=== PATIENT | male | born 1975 | race Caucasian/White ===

== ENCOUNTER → 2019-09-28 09:58 | Outpatient (BNVA) | payer SELFPAY | PROVIDERS: Family Provider Internal Medicine; Visit Provider Psychiatry & Neurology Neurology | DX: G40.909 Epilepsy, unspecified, not intractable, without status epilepticus (principal); F17.210 Nicotine dependence, cigarettes, uncomplicated | CPT/HCPCS: 99213 ==

== ENCOUNTER → 2019-11-10 15:25 | Outpatient (BNVA) | payer SELFPAY | PROVIDERS: Family Provider Internal Medicine; Visit Provider Nurse Practitioner | DX: R11.2 Nausea with vomiting, unspecified (principal) | CPT/HCPCS: 87804 ==

== ENCOUNTER → 2021-10-04 18:07 | Outpatient (BNVA) | payer SELFPAY | PROVIDERS: Family Provider Internal Medicine; Visit Provider Nurse Practitioner | DX: Z20.822 Contact with and (suspected) exposure to COVID-19 (principal) | CPT/HCPCS: 87635 ==

== ENCOUNTER 2023-01-11 21:32 | Emergency (ER) | payer SELFPAY ==
[2023-01-11 21:36] VITALS: BP 160/109; PULSE 88; RESP 16; TEMP 36.6; O2SAT 99; BMI 23.1
[2023-01-11 21:41] VITALS: BP 160/109; PULSE 88; RESP 16; TEMP 36.6; O2SAT 99
[2023-01-11] MEDS: amoxicillin-clav 875-125 mg Tablet 1 TAB PO (23:08)
[2023-01-11] MEDS: ketorolac 60 mg/2 mL INJ IM (23:08)
[2023-01-11 23:15] VITALS: PULSE 81; RESP 18; O2SAT 99
--- NOTE | 2023-01-12 04:53 | ED_ITS ---
HPI - Dental/Oral General: Chief complaint: Dental/Oral Stated complaint: tooth pain Time Seen by Provider: 01/11/23 22:36 Source: patient Mode of arrival: ambulatory Limitations: no limitations History of Present Illness: Patient presents emergency department today for evaluation treatment of right lower jaw pain and swelling secondary to dental infection over the last several days. Patient denies any fever. He has had no difficulty swallowing or sensation of difficulty breathing. Review of Systems General: Reports: 10 or more systems reviewed and unremarkable except in HPI and below PFSH ED PFSH: Medical History Generalized idiopathic epilepsy and epileptic syndromes, not intractable, without status epilepticus Family History Other CAD (coronary artery disease) Social History Smoking and tobacco status: current every day smoker cigarettes Packs smoked per day: 1 Alcohol intake: current Substance/Drug Use: current Physical Exam Const: COMMON NORMALS: no acute distress, patient oriented x3 and alert HENMT: OTHER: Patient does have some mild swelling noted to the right mid lower jawline. It is tender to palpation but, swelling does not extend down to the right side of the neck. Patient has some chronically poor dentition noted but no significant signs of swelling on the gumline, swelling on the floor of the mouth or difficulty with airway patency. Eye: COMMON NORMALS: Equal, round and reactive pupils present, EOMs intact bilaterally and conjunctivae normal CONJUNCTIVA: Yes conjunctivae normal PUPIL: Yes Equal, round and reactive pupils present Neck/C-Spine: COMMON NORMALS: no JVD Lymph: LYMPHATIC: no lymphadenopathy noted Resp: COMMON NORMALS: normal respiratory effort, No retractions and No use of accessory muscles Cardio: COMMON NORMALS: no JVD and regular rate RATE: regular rate : COMMON NORMALS: Yes no CVA tenderness BLADDER/KIDNEY EXAM: Yes no CVA tenderness Back/Pelvis: COMMON NORMALS: no CVA tenderness, thoracic and lumbar spine normal to inspection and thoraco-lumbar ROM normal Extremity: COMMON NORMALS: normal to inspection, full ROM and no pedal edema Neuro: COMMON NORMALS: patient oriented x3 SENSORIUM/ORIENTATION: Yes alert Skin: COMMON NORMALS: no rashes or lesions noted and turgor normal GENERAL SKIN EXAM: no rashes or lesions noted and turgor normal Course Vital Signs: Vital signs: Vital Signs Temperature 97.9 F 01/11/23 21:41 Pulse Rate 81 01/11/23 23:15 Respiratory Rate 18 01/11/23 23:15 Blood Pressure 160/109 01/11/23 21:41 Pulse Oximetry 99 01/11/23 23:15 Oxygen Delivery Me thod Room Air 01/11/23 21:41 MDM - Dental/Oral Medical Decision Making Patient is started on oral antibiotics here in the emergency department with the rest being given as a prescription to continue in the morning. Patient is driving himself so, only Toradol was provided to him here in the ER. A short course of pain medication was provided to him to fill at the pharmacy. He was given strict return precautions to be seen and reevaluated if swelling develops on the right side of his neck or he has any difficulty swallowing. A handout of reduced cost dental care here in the area was provided to him for reference for follow-up for more definitive dental care. Differential Diagnosis Likely gingival abscess, toothache and dental abscess Discharge Plan Discharge Patient Disposition: Home Clinical Impression: Dental abscess Condition: Stable Prescriptions: New amoxicillin-pot clavulanate 875-125 mg tablet 1 tab PO BID Qty: 20 0RF ketorolac 10 mg tablet 10 mg PO Q8H 5 Days Qty: 15 0RF Discharge Orders: Discharge ED (Routine); Ordered 01/11/23 Ordered By: Christelle Walker Referrals: Flavio Arndt MD [Family Provider] - Discharge Diet: Usual diet Discharge Activity: Increase activity as tolerated Patient Instructions: Dental Abscess (ED) Activity Restrictions/Additional Instructions: We have started antibiotics and medication to help you with pain tonight. However, you do have noticeable swelling of your right jaw and I have some concerns if there is continued swelling down the right side of your neck. If you have any difficulty breathing or swallowing need to return to the emergency room immediately. I also have some resources in your discharge packet to look over should you need follow-up dental care. Coding Level of Care Code ED [employer] for Miguel Jasso
--- NOTE | 2023-01-23 10:30 | DCPLANNER ---
TCM called patient due to no primary care physician - no answer at this time.
== END 2023-01-11 23:16 | disposition home or self-care (01) ==
PROVIDERS: Emergency Provider Physician Assistant; Family Provider Internal Medicine
DX: K04.7 Periapical abscess without sinus (principal); F17.210 Nicotine dependence, cigarettes, uncomplicated
CPT/HCPCS: 96372; 99284; J1885

== ENCOUNTER 2023-09-13 02:30 | Emergency (ER) | payer SELFPAY ==
[2023-09-13 02:31] VITALS: BP 136/87; PULSE 81; RESP 20; TEMP 36.3; O2SAT 96; BMI 26.4
--- NOTE | 2023-09-13 02:58 | ED_ITS ---
HPI - Altered Mental Status General: Chief Complaint: Altered Mental Status Stated Complaint: LOC Time Seen by Provider: 09/13/23 02:58 History of Present Illness: 47-year-old male who was evidently [place]ke d [place] by EMS [place] [address] He was found in a car. Supposedly he was slumped over. He was nonparticipatory with EMS evaluation or treatment. He refuses to answer questions here. He responds essentially to sternal rub and other noxious stimuli only. He moves all extremities, opens both eyes, and says quit it when disturbed. He will not answer questions. Review of Systems General: Reports: Other (Unobtainable due to patient nonparticipation) [facility] ED PFSH: Medical History Generalized idiopathic epilepsy and epileptic syndromes, not intractable, without status epilepticus Family History Other CAD (coronary artery disease) Social History Smoking and tobacco/nicotine status: current every day tobacco/nicotine user cigarettes Packs smoked per day: 1 Alcohol intake: current Substance/Drug Use: current Physical Exam Const: COMMON NORMALS: no acute distress EXAM LIMITATIONS: behavioral limitations GENERAL APPEARANCE: not cooperative, not ill appearing and not frail appearing NUTRITIONAL APPEARANCE: cachectic ORIENTATION/CONSCIOUSNESS: Yes awake HENMT: COMMON NORMALS: normocephalic and Normal external nose present HEAD & SCALP: normocephalic FACE & SINUS: normal facial exam and face symmetric NOSE: Normal external nose present Eye: COMMON NORMALS: Equal, round and reactive pupils present, EOMs intact bilaterally and no scleral icterus EYELID: eyelids normal PUPIL: Yes Equal, round and reactive pupils present SLIT LAMP EXAM: Yes slit lamp exam performed with fluorescein Neck/C-Spine: COMMON NORMALS: full ROM GENERAL: Yes normal visual inspection and Yes trachea midline Chest: CHEST: Yes Symmetrical chest wall rise Resp: COMMON NORMALS: No use of accessory muscles, clear to auscultation bilaterally and percussion normal AUSCULTATION: clear to auscultation bilaterally PERCUSSION: percussion normal Cardio: COMMON NORMALS: regular rate and regular rhythm RATE: regular rate RHYTHM: regular rhythm GI: COMMON NORMALS: Normal to inspection, nondistended, normoactive bowel sounds present and Soft to palpation PALPATION: Yes Soft to palpation Course Vital Signs: Vital signs: Vital Signs Temperature 97.4 F L 09/13/23 02:31 Pulse Rate 101 H 09/13/23 09:37 Respiratory Rate 15 09/13/23 09:37 Blood Pressure 112/76 09/13/23 09:37 Pulse Oximetry 99 09/13/23 09:37 Oxygen Delivery Me thod Room Air 09/13/23 08:57 MDM - Altered Mental Status Medical Decision Making This patient has normal vital signs, clearly knows where he is, his nonparticipatory in interview or exam. On chart review, he appears to have a history of generalized seizure disorder. He is been noncompliant with medication in the past. We are unable to discern given his none anticipatory demeanor whether or not he may have had a seizure this morning. Being postictal could account for his behavior here, although his mental status seems to wax and wane freely. He has been observed to open his eyes and look around when no one is in the room, and shot them again when someone enters. Malingering is at the top of his differential. As he is unwilling to give any information on exam, participate in a physical exam or any meaningful interaction, but shows no sign of overt trauma, has normal vital signs, and has a clearly nonfocal neurological exam, he will be allowed discharge. He has been provided screening medical exam and found to be clear. No radiology studies performed this visit Discharge Plan Discharge Patient Disposition: Home Clinical Impression: Generalized seizure Condition: Stable Prescriptions: No Action amoxicillin-pot clavulanate 875-125 mg tablet 1 tab PO BID Qty: 20 0RF Discharge Orders: Discharge ED (Routine); Ordered 09/13/23 Ordered By: Parviz Tobin Referrals: Flavio Arndt MD [Family Provider] - Patient Instructions: Altered Mental Status (ED), Opioid Safety, Pain Management Activity Restrictions/Additional Instructions: See your doctor next week. Coding Level of Care Code ED Sample Grader for Miguel Jasso
--- NOTE | 2023-09-13 03:01 | PC.NURSE ---
Pt. refuses to talk to doctor or nurses but responds in anger when staff try to assess him saying Leave me alone, STOP! . EMS stated that he refused their care as well. Pt. has no signs or symptoms of trauma, injury or pain. Pt. found in car [place] side of the road by police and they called ems.
--- NOTE | 2023-09-13 06:08 | PC.NURSE ---
Pt. got up out of his bed and walked down to room 15 and sit in the chair in the room. Pt. would not talk to staff. Pt. now back in room 13 laying in bed. Pt. will only say huh when staff attempts to speak to him.
--- NOTE | 2023-09-13 06:50 | PC.NURSE ---
Patient did arrive to ER with a roll of 20-dollar bills wrapped by a rubber band. Money remains uncounted and at bedside. Dayshift nurse Ari GAGE notified.
[2023-09-13 08:57] VITALS: BP 113/73; PULSE 85; RESP 16; O2SAT 97
[2023-09-13 09:37] VITALS: BP 112/76; PULSE 101; RESP 15; O2SAT 99
== END 2023-09-13 09:38 | disposition home or self-care (01) ==
PROVIDERS: Emergency Provider Emergency Medicine; Family Provider Internal Medicine
DX: G40.409 Other generalized epilepsy and epileptic syndromes, not intractable, without status epilepticus (principal); F17.210 Nicotine dependence, cigarettes, uncomplicated
CPT/HCPCS: 99283